=== PATIENT | male | born 1990 | race Caucasian/White ===

== ENCOUNTER 2017-01-25 23:37 | Emergency (ER) | payer OTHER ==
[~2017-01-25] VITALS: Ht 182.8 cm; Wt 79.4 kg
[~2017-01-25 23:37] MED LIST: ATARAX25 MG PO; CLINDAMYCIN HC300 MG PO; CYCLOBENZAPRINE5 M3 PO; FLUOXETINE HYDR20 M1 PO; LIDEX0.05% T; MEDROL DOSEPAK4 MG PO; NKHM PO; NORCO 325 MG-51 TAB PO; PREDNICOT20 MG PO; PREDNISONE20 MG PO; PROZAC20 MG PO; TOBRADEX 0.1%-0.5 ML OPH; VICODIN 5/500 505 MG PO; VYVANSE60 MG PO
[2017-01-25 23:42] VITALS: BP 121/77
[2017-01-25] MEDS ORDERED: CLINDAMYCIN HC300 MG PO (23:59)
== END 2017-01-25 23:57 | disposition home or self-care (01) ==
LOC: ED 23:37
DX: J02.9 Acute pharyngitis, unspecified (principal); F17.200 Nicotine dependence, unspecified, uncomplicated; Z88.0 Allergy status to penicillin; Z88.1 Allergy status to other antibiotic agents; Z91.013 Allergy to seafood; Z79.899 Other long term (current) drug therapy

== ENCOUNTER → 2017-02-09 | Outpatient (CLI) | payer OTHER | END | disposition home or self-care (01) | LOC: RAD 21:32 | DX: M54.5 Low back pain (principal) ==

== ENCOUNTER 2017-09-25 00:38 | Emergency (ER) | payer OTHER ==
[~2017-09-25] VITALS: Ht 182.8 cm; Wt 79.4 kg
[2017-09-25 00:39] VITALS: BP 140/87
[2017-09-25 01:28] LABS: BILIRUBIN NEGATIVE (NEGATIVE); BLOOD NEGATIVE (NEGATIVE); CLARITY CLEAR (CLEAR); COLOR YELLOW (YELLOW); GLUCOSE NEGATIVE (NEGATIVE); KETONE NEGATIVE (NEGATIVE); LEUKO ESTERASE NEGATIVE (NEGATIVE); NITRITE NEGATIVE (NEGATIVE); PH 5.5 (5.0-9.0); SPECIFIC GRAVITY >= 1.030 (1.005-1.030); UROBILINOGEN 0.2 E.U./dl (0.2-1.0)
[2017-09-25 01:36] LABS: CALCIUM OXALATE CRYSTALS 1+; MUCOUS TRACE; WBC 0-2 wbc/hpf (0-5)
== END 2017-09-25 01:32 | disposition home or self-care (01) ==
LOC: ED 00:38
PROVIDERS: Nurse Practitioner Family
DX: A64 Unspecified sexually transmitted disease (principal); F17.200 Nicotine dependence, unspecified, uncomplicated; Z88.0 Allergy status to penicillin; Z88.1 Allergy status to other antibiotic agents; Z91.013 Allergy to seafood; Z79.899 Other long term (current) drug therapy

== ENCOUNTER → 2019-04-04 | Outpatient (CLI) | payer OTHER ==
[2019-04-04 16:49] LABS: HEMATOCRIT 50.4 % (42.0-52.0); HEMOGLOBIN 16.6 g/dl (14.0-18.0); MEAN CELL VOLUME 92.8 fl (80.0-94.0); MEAN CORPUSCULAR HGB 30.6 pg (27.0-31.0); MEAN CORPUSCULAR HGB CONC 32.9 g/dl (33.0-37.0); MEAN PLATELET VOLUME 8.5 fl (9.6-12.3); RED BLOOD COUNT 5.43 10*6/uL (4.50-5.90); RED CELL DISTRI WIDTH 12.8 % (0-14.5); WHITE BLOOD COUNT 10.1 10*3/uL (4.8-10.8)
[2019-04-04 17:17] LABS: ALBUMIN 4.2 gm/dl (3.1-4.5); ALKALINE PHOSPHATASE 81 U/L (45-117); BUN 10 mg/dl (7-24); CHLORIDE 107 mmol/L (98-107); CHOLESTEROL 202 mg/dL (<200); CREATININE 1.04 mg/dL (0.70-1.30); HDL CHOLESTEROL 44 mg/dl (40-60); LDL CHOLESTEROL 131 mg/dL (9-159); POTASSIUM 4.4 mmol/L (3.5-5.1); SGOT/AST 11 IU/L (3-35); SGPT/ALT 21 U/L (12-78); SODIUM 144 mmol/L (136-145); TOTAL PROTEIN 7.7 gm/dL (6.4-8.2); TRIGLYCERIDES 134 mg/dl (<150); VLDL CHOLESTEROL 27 mg/dL (6-40)
== END | disposition home or self-care (01) ==
LOC: LAB 16:27
PROVIDERS: Family Medicine
DX: F41.1 Generalized anxiety disorder (principal); E74.00 Glycogen storage disease, unspecified; E55.9 Vitamin D deficiency, unspecified; F90.9 Attention-deficit hyperactivity disorder, unspecified type

== ENCOUNTER → 2019-11-11 | Outpatient (CLI) | payer SELFPAY | END | disposition home or self-care (01) | LOC: RAD 14:47 | DX: M54.5 Low back pain (principal) ==

== ENCOUNTER → 2019-12-22 | Outpatient (CLI) | payer OTHER | END | disposition home or self-care (01) | LOC: MRI 14:55 | PROVIDERS: ATTEND Family Medicine | DX: M51.26 Other intervertebral disc displacement, lumbar region (principal); M48.061 Spinal stenosis, lumbar region without neurogenic claudication ==

== ENCOUNTER → 2020-01-24 | Outpatient (CLI) | payer OTHER | END | disposition home or self-care (01) | LOC: LAB 14:07 | PROVIDERS: ATTEND Student in an Organized Health Care Education/Training Program | DX: Z86.14 Personal history of Methicillin resistant Staphylococcus aureus infection (principal) ==

== ENCOUNTER → 2020-04-09 | Outpatient (CLI) | payer OTHER | END | disposition home or self-care (01) | LOC: COVID19 16:11 | PROVIDERS: ATTEND Family Medicine | DX: Z20.828 Contact with and (suspected) exposure to other viral communicable diseases (principal) ==

== ENCOUNTER 2024-12-18 12:42 | Emergency (ER) | payer BC ==
[~2024-12-18] VITALS: Ht 182.8 cm; Wt 79.4 kg
[2024-12-18 13:20] VITALS: BP 122/73
[2024-12-18] MEDS ORDERED: PREDNISONE50 MG PO (13:26)
== END 2024-12-18 13:50 | disposition home or self-care (01) ==
LOC: ED 12:42
DX: S83.91XA Sprain of unspecified site of right knee, initial encounter (principal); Z88.0 Allergy status to penicillin; Z88.1 Allergy status to other antibiotic agents; Z91.013 Allergy to seafood; Z79.899 Other long term (current) drug therapy; X50.3XXA Overexertion from repetitive movements, initial encounter; Y93.89 Activity, other specified; Y92.89 Other specified places as the place of occurrence of the external cause; Y99.8 Other external cause status

== ENCOUNTER 2024-12-24 14:51 | Emergency (ER) | payer BC ==
[~2024-12-24] VITALS: Ht 182.8 cm; Wt 79.4 kg
[~2024-12-24 14:51] MED LIST changes: +PREDNISONE50 MG PO
[2024-12-24 15:04] VITALS: BP 131/86
[2024-12-24 15:36] LABS: MEAN CELL VOLUME 94.4 fl (80.0-94.0); MEAN CORPUSCULAR HGB 30.5 pg (27.0-31.0); MEAN PLATELET VOLUME 7.8 fl (9.6-12.3); NUCLEATED RED BLOOD CELL 0.0 % (0.0-0.0); NUCLEATED RED BLOOD CELL 0.0 10*3/uL (0.0-0.0); PLATELET COUNT AUTOMATED 490 10*3/uL (130-400); RED CELL DISTRI WIDTH 13.3 % (0-14.5)
[2024-12-24 15:39] LABS: MANUAL DIFF REFLEX YES
[2024-12-24 15:55] LABS: BUN 13 mg/dl (9-23)
[2024-12-24 16:00] LABS: BASOPHILS 1 % (0-1); PLATELET SUFFICIENCY HIGH (NORMAL)
[2024-12-24] MEDS ORDERED: KETOROLAC10 MG PO (17:16)
== END 2024-12-24 17:23 | disposition home or self-care (01) ==
LOC: ED 14:51
PROVIDERS: Internal Medicine
DX: M25.461 Effusion, right knee (principal); Z88.0 Allergy status to penicillin; Z88.1 Allergy status to other antibiotic agents; Z91.013 Allergy to seafood

== ENCOUNTER → 2024-12-27 | Outpatient (CLI) | payer BC ==
[~2024-12-27] MED LIST changes: +KETOROLAC10 MG PO
== END | disposition home or self-care (01) ==
LOC: US 07:45
PROVIDERS: ATTEND Orthopaedic Surgery
DX: R60.0 Localized edema (principal)